=== PATIENT | female | born 1995 | race Caucasian/White ===

== ENCOUNTER 2020-03-04 11:46 | Emergency (ER) | payer OTHER, SELFPAY ==
[2020-03-04 12:06] VITALS: BP 135/76; PULSE 104; RESP 18; TEMP 37.9; O2SAT 100
--- NOTE | 2020-03-04 12:06 | ED.GENADULT ---
HPI - General Adult General Chief complaint: Anxiety Stated complaint: heart rate Time Seen by Provider: 03/04/20 12:24 Source: patient Mode of arrival: ambulatory Limitations: no limitations History of Present Illness HPI narrative: 24-year-old female patient presents to the [facility] with complaints of a high resting heart rate. Patient states that she was on a telehealth visit with her psychiatrist today. Patient states that she has been using her Fitbit as the source of her fast heart rate. Patient states that it ranges anywhere from the 110s up to the 120s. Patient states that while she was on the phone with her psychiatrist this morning her heart rate was 113 according to her Fitbit. Patient denies any chest pain, shortness of breath, abdominal pain, lightheadedness or dizziness. Patient denies being sick recently. Patient states that her medications through her psychiatrist were increased today due to her low mood. Patient states she is supposed to pick those up and started today. Patient denies any SI or HI at this time. Related Data Home Medications Medication Instructions Recorded Confirmed amitriptyline 50 mg PO HS 03/04/20 03/04/20 lamotrigine 150 mg PO DAILY 03/04/20 03/04/20 venlafaxine 75 mg PO DAILY 03/04/20 03/04/20 venlafaxine 150 mg PO DAILY 03/04/20 03/04/20 Allergies Allergy/AdvReac Type Severity Reaction Status Date / Time codeine AdvReac Unknown Verified 03/04/20 12:16 Review of Systems Review of Systems: Narrative: CONSTITUTIONAL: Denies fever, chills, or sweats. EYES: Denies visual changes, redness, or discharge. ENT: Denies rhinorrhea, congestion, sore throat, or otalgia. CARDIOVASCULAR: Denies chest pain, palpitations, or edema. Positive increased heart rate RESPIRATORY: Denies cough or dyspnea. GASTROINTESTINAL: Denies abdominal pain, nausea, vomiting, or diarrhea. GENITOURINARY: Denies dysuria or hematuria. SKIN: Denies rash or itching. MUSCULOSKELETAL: Denies back pain, joint pain, or myalgia. NEUROLOGIC: Denies headache, numbness, or weakness. PSYCHIATRIC: Denies anxiety or depression. [facility] Past Medical History Medical History (Updated 03/04/20 @ 12:39 by TUNDE Lima) Acute anxiety Depression Mood disorder Tachycardia Social History Social History Gender identity (if verbalized by the patient): Female Comments At the time of my signature I agree with nursing past medical history, surgical, social, and family history. There is no relevant family history pertinent to the presenting complaint. Exam Narrative: Exam Narrative: GENERAL: Well-appearing, well-nourished, and in no acute distress. HEAD: Normocephalic, atraumatic. EYES: PERRLA and EOMI. ENT: Nares clear, no rhinorrhea or epistaxis. Mucous membranes moist. NECK: Supple. No lymphadenopathy CHEST: Clear to auscultation. No respiratory distress. HEART: Regular rate and rhythm. No murmur heard. Normal peripheral pulses. ABDOMEN: Soft, nontender, nondistended, normal active bowel sounds. EXTREMITIES: Normal range of motion. No edema. SKIN: Warm, dry, no rash. NEURO: No focal deficits. Alert and oriented x3. Course Vital Signs Vital signs: Vital Signs Temperature 37.9 C H 03/04/20 12:06 Pulse Rate 104 H 03/04/20 12:06 Respiratory Rate 18 03/04/20 12:06 Blood Pressure 135/76 03/04/20 12:06 Pulse Oximetry 100 03/04/20 12:06 Temperature 37.9 C H 03/04/20 12:06 Pulse Rate 104 H 03/04/20 12:06 Respiratory Rate 18 03/04/20 12:06 Blood Pressure 135/76 03/04/20 12:06 Pulse Oximetry 100 03/04/20 12:06 Vital signs reviewed Medical Decision Making Differential Diagnosis Differential Diagnosis: Differential diagnosis: Tachycardia, anxiety attack, viral illness Discussed with patient that many times issues with anxiety can cause an increase in heart rate however her heart rate when she came in today was 104 which is aurea
== END 2020-03-04 12:38 | disposition home or self-care (01) ==
PROVIDERS: Emergency Provider Nurse Practitioner Family
DX: F41.9 Anxiety disorder, unspecified (principal); R00.0 Tachycardia, unspecified; F32.9 Major depressive disorder, single episode, unspecified
CPT/HCPCS: 99211; G0463

== ENCOUNTER 2020-03-27 11:08 | Emergency (ER) | payer OTHER, SELFPAY ==
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
[2020-03-27 11:19] VITALS: BP 120/90; PULSE 102; RESP 18; TEMP 36.8; O2SAT 100
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
== END 2020-03-27 13:12 | disposition home or self-care (01) ==
PROVIDERS: Emergency Provider General Practice
DX: S09.90XA Unspecified injury of head, initial encounter (principal); S16.1XXA Strain of muscle, fascia and tendon at neck level, initial encounter; Y04.2XXA Assault by strike against or bumped into by another person, initial encounter
CPT/HCPCS: 70450; 70486; 72125; 99284

== ENCOUNTER 2020-07-26 12:42 | Emergency (ER) | payer OTHER, SELFPAY ==
[2020-07-26 13:14] VITALS: BP 119/75; PULSE 79; RESP 18; TEMP 37.3; O2SAT 99
[2020-07-26 13:32] LABS: Basophils Absolute Auto 0.1 K/mm3 (0.0-0.1); Basophils Percent Auto 0.6 % (0.2-1.2); Eosinophils Absolute Auto 0.1 K/mm3 (0-0.3); Eosinophils Percent Auto 0.8 % (0-4.4); Hematocrit 38.7 % (37.0-47.0); Hemoglobin 13.3 g/dL (12.0-15.0); Immature Granulocyte Absolute 0.07 K/mm3 (0.00-0.031); Immature Granulocyte Percent A 0.8 % (0-0.5); Lymphocytes Absolute Auto 2.13 K/mm3 (0.9-3.2); Lymphocytes Percent Auto 25.8 % (18.3-44.2); Mean Corpuscular HGB Conc 34.4 g/dl (32-36); Mean Corpuscular Hemoglobin 31.4 pg (26-34); Mean Corpuscular Volume 91.3 fl (80-100); Mean Platelet Volume 9.5 fl (7.4-10.4); Monocytes Absolute Auto 0.4 K/mm3 (0.1-0.6); Monocytes Percent Auto 4.7 % (2.6-8.5); Neutrophils Absolute Auto 5.6 K/mm3 (1.3-6.7); Neutrophils Percent Auto 67.3 % (45.5-73.1); Platelet Count Result 386 k/mm3 (150-375); Red Blood Count 4.24 M/mm3 (4.2-5.4); Red Cell Distribution Width 11.8 % (11.5-14.5); White Blood Count 8.3 K/mm3 (4.5-10.0)
[2020-07-26 13:45] LABS: Alanine Aminotransferase 13 U/L (4-35); Albumin Level 4.6 g/dL (3.5-5.1); Alkaline Phosphatase 91 U/L (38-126); Anion Gap 6 mmol/L (8-16); Aspartate Amino Transferase 21 U/L (14-36); Blood Urea Nitrogen 7 mg/dL (7-17); Calcium 9.5 mg/dL (8.4-10.2); Carbon Dioxide 27 mmol/L (22-30); Chloride 106 mmol/L (98-107); Estimated CRCL calculation 94 ml/min; Estimated Glomerular Filt Rate > 60; Glucose 92 mg/dL (65-105); Lipase 37 U/L (23-300); Sodium 139 mmol/L (137-145)
[2020-07-26 14:00] LABS: Add Urine Microscopic? YES; Amorphous Sediment Urine Few; Appearance Urine Turbid (Clear); Bacteria Urine Trace /hpf; Bilirubin Urine Negative (Negative); Blood Urine Negative (Negative); Color Urine Yellow (Yellow); Glucose Urine UA Negative (Negative); Ketones Urine Negative (Negative); Leukocyte Esterase Ur 3+ LEU/UL (Negative); Mucus Urine Moderate /lpf; Nitrate Urine Negative (Negative); Protein Urine 2+ mg/dL (Negative); Specific Grav Ur 1.018 (1.001-1.035); Squamous Epithelial Cell Urine Many /hpf (Few); Urobilinogen Urine Negative mg/dL (<2.0); WBC Urine >75 /hpf
[2020-07-26 14:07] VITALS: BP 123/68; PULSE 78; RESP 18; TEMP 36.8; O2SAT 99
[2020-07-26] MEDS: ONDANSETRON INJ 4 MG/2 ML VIAL IV PUSH (14:29)
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
[2020-07-26 16:17] VITALS: BP 122/68; PULSE 72; RESP 18; O2SAT 98
== END 2020-07-26 16:18 | disposition home or self-care (01) ==
PROVIDERS: Physician Assistant; Emergency Provider Emergency Medicine
DX: R11.2 Nausea with vomiting, unspecified (principal); F41.9 Anxiety disorder, unspecified; F32.9 Major depressive disorder, single episode, unspecified
CPT/HCPCS: 36415; 80053; 81001; 81025; 83690; 85025; 87077; 87086; 87088; 87186; 96374; 99284; J2405

== ENCOUNTER 2022-08-06 08:46 | Emergency (ER) | payer OTHER, SELFPAY ==
--- NOTE | 2022-08-06 08:50 | ED.URI ---
HPI - URI/Sore Throat General Chief Complaint: Upper Respiratory Infection Stated Complaint: Cough/SOB/Right Eye Irritation Time Seen by Provider: 08/06/22 09:17 Source: patient and RN notes reviewed Mode of arrival: ambulatory Limitations: no limitations History of Present Illness HPI Narrative: 27-year-old female presents with concern for 5 day history of sinus congestion, drainage, cough, sore throat. Reports she woke up this morning with her right eye matted shut. Reports right eye redness, drainage. She denies taking any vlte-cea-wosbegl medications for her symptoms MD elicited complaint: cough, sore throat and nasal congestion Related Data Allergies Allergy/AdvReac Type Severity Reaction Status Date / Time codeine AdvReac Unknown Verified 08/06/22 09:04 Review of Systems Review of Systems: CONSTITUTIONAL: Denies malaise, chills, sweats, or fever. EYES: Denies visual changes. Reports right eye irritation, redness, yellow discharge. ENT: Reports rhinorrhea, congestion, and sore throat. CARDIOVASCULAR: Denies chest pain, palpitations, or edema. RESPIRATORY: Reports cough. Denies dyspnea. GASTROINTESTINAL: Denies abdominal pain, nausea, vomiting, diarrhea SKIN: Denies rash or itching. MUSCULOSKELETAL: Denies myalgia. NEUROLOGIC: Denies headache. All systems reviewed & are unremarkable except as noted in HPI and below PMFSH Past Medical History Medical History (Updated 08/06/22 @ 09:31 by Kati Pollard NP) Acute anxiety Depression Mood disorder Tachycardia Surgical History Surgical History (Updated 07/26/20 @ 14:48 by Michael Eastman MD) No pertinent past surgical history Social History Social History (Updated 07/26/20 @ 14:49 by Michael Eastman MD) Substance use type: marijuana Gender identity (if verbalized by the patient): Female Comments At time of signature, agree with nursing past medical, surgical, social and family history. There is no relevant family history pertinent to the presenting complaint Exam Narrative: GENERAL: Well-appearing, well-nourished, and in no acute distress. HEAD: Normocephalic EYES: PERRLA. Right sclera and conjunctivae injected with yellow drainage ENT: Nares clear, turbinates edematous and erythematous, yellow discharge. Mucous membranes moist. TM pearly pineda with dull light reflex bilaterally; no tragal tenderness. Oropharynx mildly erythematous without lesions. Tonsils not enlarged and without exudate, no drooling, no hoarseness, no trismus, uvula midline. NECK: Supple. No lymphadenopathy CHEST: Clear to auscultation, breath sounds equal. No wheezing, rhonchi, rales, or stridor. No respiratory distress, speaks in full sentences. HEART: Regular rate and rhythm. No murmur heard. SKIN: Warm, dry, no rash. NEURO: Alert and oriented x3. PSYCH: Normal mood and affect Course Course Emergency Course: Patient is aware of diagnosis, understands and agrees to treatment plan. Anticipatory guidance given. Patient agrees to follow-up as directed and is aware of reasons to seek care at the emergency department. Portions of this record may have been created with voice recognition software Level of Care: Express Care Visit Vital Signs Vital signs: Reviewed. MDM - URI/Sore Throat MDM Narrative Medical decision making narrative: Differential diagnosis considered: Gallego virus, strep pharyngitis, allergic rhinitis, upper respiratory tract infection, sinusitis, rhinosinusitis, nasopharyngitis. viral pharyngitis, otitis media, otitis externa, pneumonia, bronchitis, viral cough syndrome, viral syndrome, and influenza. Exam findings show no acute concerns or changes; patient is non-toxic appearing and is in no distress. Patient is appropriate for outpatient treatment and follow-up. Lab Data Attestation: I reviewed the patient's lab results. Critical Care Time Critical Care Time Critical Care Time: No Discharge Plan Discharge Clinical Impression: Acute viral sinus
[2022-08-06 09:06] VITALS: BP 130/87; PULSE 95; RESP 20; TEMP 36.9; O2SAT 100
== END 2022-08-06 09:41 | disposition home or self-care (01) ==
PROVIDERS: Emergency Provider Nurse Practitioner; PCP Physician Assistant
DX: J01.90 Acute sinusitis, unspecified (principal); H10.9 Unspecified conjunctivitis; Z20.822 Contact with and (suspected) exposure to COVID-19
CPT/HCPCS: 87081; 87426; 87804; 87880; 99213; C9803; G0463

== ENCOUNTER 2022-10-12 15:36 | Emergency (ER) | payer OTHER, SELFPAY ==
--- NOTE | 2022-10-12 15:39 | ED.FEMALEGU ---
HPI - Female Genitourinary General Chief complaint: Urogenital-Female Stated complaint: Sti testing Time Seen by Provider: 10/12/22 15:37 Source: patient Mode of arrival: ambulatory Limitations: no limitations History of Present Illness HPI Narrative: Airam is a 27-year-old female patient presenting to the clinic today with complaints vaginal pain and burning with urination. She reports last intercourse was over a week ago. States she is having burning with urination and excoriation to her vulva. Also reports some lesions to her vulva. States that she has recently shaved and the spots came up after shaving. She denies any abnormal vaginal discharge or odor. Related Data Home Medications Medication Instructions Recorded Confirmed amitriptyline 50 mg tablet 50 mg PO HS 10/12/22 10/12/22 aripiprazole 20 mg tablet 20 mg PO DAILY 10/12/22 10/12/22 lamotrigine 100 mg tablet,extended 100 mg PO DAILY 10/12/22 10/12/22 release 24 hr levonorgestrel 21 mcg/24 hours (8 1 device intrauterine ONCE 10/12/22 10/12/22 yrs) 52 mg intrauterine device (Mirena) Allergies Allergy/AdvReac Type Severity Reaction Status Date / Time codeine Allergy Intermediate Hives Verified 10/12/22 16:02 Review of Systems Review of Systems: Pertinent positives per HPI. Patient denies any fever, chills, rash, headache, visual changes, dizziness, cough, runny nose, sore throat, shortness of breath, chest pain, palpitations, nausea, vomiting, diarrhea, constipation, abdominal pain, or any urinary issues. [facility] Past Medical History Medical History Acute anxiety Depression Mood disorder Tachycardia Surgical History Surgical History No pertinent past surgical history Social History Social History Substance use type: marijuana Gender identity (if verbalized by the patient): Female Comments At the time of my signature, I reviewed and agree with the nursing past medical, surgical, social, and family history. There is no relevant family history pertinent to the patient complaint. Exam Narrative: General: Well-developed, well nourished, in no apparent distress Head: Normocephalic, atraumatic. Cardio: Regular rate and rhythm, s1 and s2 normal, no murmur appreciated. Resp: Clear to auscultation bilaterally, no rhonchi, rales, wheezing or rubs. Abdomen: Soft, pliable, bowel sounds present in all quadrants, non-tender to palpation, no CVAT tenderness. : External Pelvic exam performed with ( Tarun RN-TRIPLE DRUM OPERATOR student) at bedside. Verbal consent obtained from patient. External female genitalia with vesicular painful lesions to the vulva/vagina, no masses, excoriation of vulva Urinary meatus: patent without discharge, Vagina: Vesicular pain lesions to bilateral labia, vulva, and mons pubis, no masses or discharge, Course Course Emergency Course: Portions of this record may have been created with voice recognition software. Level of Care: Express Care Visit Vital Signs Vital signs: Vital signs reviewed MDM - Female Genitourinary MDM Narrative Medical decision making narrative: At the time of visit patient is resting comfortably on exam table. Urinalysis shows 1+ leukocyte and protein. We will send for culture. We will send her urine off for chlamydia, gonorrhea, and Trichomonas testing. Viral swab was used to test for genital herpes. I will place the patient on Macrobid to cover for a urinary tract infection. Will also send in prescription for acyclovir for probable genital herpes. Supportive measures were discussed with the patient she voiced understanding discharge instructions agrees to treatment plan Differential Diagnosis Differential diagnosis: Likely urinary tract infection, bacterial vaginosis, trichomoniasis, vaginitis and cystitis
[2022-10-12 15:44] VITALS: BP 118/77; PULSE 109; RESP 16; TEMP 37.4; O2SAT 100
== END 2022-10-12 16:28 | disposition home or self-care (01) ==
PROVIDERS: Emergency Provider Nurse Practitioner Family; PCP Physician Assistant
DX: N76.5 Ulceration of vagina (principal); N76.6 Ulceration of vulva; N30.00 Acute cystitis without hematuria; F32.A Depression, unspecified; F12.90 Cannabis use, unspecified, uncomplicated
CPT/HCPCS: 81003; 87070; 87077; 87086; 87186; 87491; 87591; 87661; 99214; G0463

== ENCOUNTER 2022-12-02 13:23 | Emergency (ER) | payer OTHER, SELFPAY ==
[2022-12-02] VITALS (16 sets, daily range): BP systolic 113–141; BP diastolic 68–95; PULSE 77–89; RESP 18; O2SAT 98–100
[2022-12-02 14:01] LABS: Basophils Percent Auto 0.2 % (0.2-1.2); Hematocrit 45.7 % (37.0-47.0); Hemoglobin 15.5 g/dL (12.0-15.0); Immature Granulocyte Absolute 0.08 K/mm3 (0.00-0.031); Immature Granulocyte Percent A 0.5 % (0-0.5); Lymphocytes Absolute Auto 1.39 K/mm3 (0.9-3.2); Lymphocytes Percent Auto 9.4 % (18.3-44.2); Mean Corpuscular HGB Conc 33.9 g/dl (32-36); Mean Corpuscular Hemoglobin 31.4 pg (26-34); Mean Corpuscular Volume 92.7 fl (80-100); Mean Platelet Volume 9.1 fl (7.4-10.4); Monocytes Absolute Auto 0.8 K/mm3 (0.1-0.6); Monocytes Percent Auto 5.1 % (2.6-8.5); Neutrophils Absolute Auto 12.6 K/mm3 (1.3-6.7); Neutrophils Percent Auto 84.8 % (45.5-73.1); Platelet Count Result 393 k/mm3 (150-375); Red Blood Count 4.93 M/mm3 (4.2-5.4); Red Cell Distribution Width 11.8 % (11.5-14.5); White Blood Count 14.8 K/mm3 (4.5-10.0)
[2022-12-02 14:16] LABS: Appearance Urine Cloudy (Clear); Bacteria Urine 2+ /hpf; Bilirubin Urine 1+ (Negative); Blood Urine Negative (Negative); Color Urine Dark Yellow (Yellow); Glucose Urine UA Negative (Negative); Ketones Urine Trace mg/dL (Negative); Leukocyte Esterase Ur Trace LEU/UL (Negative); Need Manual Microscopic Reviewed; Nitrate Urine Negative (Negative); Non Pathogenic Casts 0-2; Protein Urine 2+ mg/dL (Negative); Specific Grav Ur 1.034 (1.001-1.035); Squamous Epithelial Cell Urine Many /hpf (Few)
[2022-12-02 14:17] LABS: Add Urine Microscopic? YES
--- NOTE | 2022-12-02 14:19 | ED.NAVMDI ---
HPI - Nausea/Vomiting/Diarrhea General Chief complaint: Nausea/Vomiting/Diarrhea Stated complaint: N/V Time Seen by Provider: 12/02/22 14:06 History of Present Illness HPI Narrative: Patient is a 27-year-old female with history of cyclic vomiting syndrome here with nausea and vomiting. She states that this feels similar to her prior episodes of cyclic vomiting syndrome. Her symptoms began around 530 yesterday morning and she began having multiple episodes of emesis. Nonbloody, usually containing the fluids that she just drank. She denies any associated abdominal pain. Denies any diarrhea. Denies fever chills. She did have 1 prior endoscopy in 2012 which was grossly normal that she remembers. Is currently waiting for a GI referral from her primary care doctor. She notes she has been on Zofran as well as suppositories in the past for her nausea, none of these seem to have helped and she usually does have to let it ride out. No urinary symptoms. No concern for STI. She has irregular periods due to Mirena IUD, does not believe she is . Related Data Home Medications Medication Instructions Recorded Confirmed amitriptyline 50 mg tablet 50 mg PO HS 10/12/22 10/12/22 aripiprazole 20 mg tablet 20 mg PO DAILY 10/12/22 10/12/22 lamotrigine 100 mg tablet,extended 100 mg PO DAILY 10/12/22 10/12/22 release 24 hr levonorgestrel 21 mcg/24 hours (8 1 device intrauterine ONCE 10/12/22 10/12/22 yrs) 52 mg intrauterine device (Mirena) Allergies Allergy/AdvReac Type Severity Reaction Status Date / Time codeine Allergy Intermediate Hives Verified 12/02/22 13:43 Review of Systems Review of Systems: All systems reviewed & are unremarkable except as noted in HPI and below PMFSH Past Medical History Medical History Acute anxiety Depression Mood disorder Tachycardia Surgical History Surgical History No pertinent past surgical history Social History Social History Substance use type: marijuana Gender identity (if verbalized by the patient): Female Exam Narrative: GENERAL: Well-appearing, well-nourished, and in no acute distress. HEAD: Normocephalic, atraumatic. EYES: PERRLA and EOMI. ENT: Nares clear. Mucous membranes moist. NECK: Supple. CHEST: Clear to auscultation. No respiratory distress. HEART: Regular rate and rhythm. Normal peripheral pulses. ABDOMEN: Soft, nontender, nondistended. EXTREMITIES: Normal range of motion. No edema. SKIN: Warm, dry, no rash. NEURO: No focal deficits. Alert and oriented x3. PSYCH: Normal mood and affect. Course Course Emergency Course: Chart review performed. Nursing note states history of cyclic vomiting, began at 530 AM yesterday. One prior ED visit for the same in our system in 2020. Physician note reviewed from that visit. She was treated and discharged with zofran. Patient presented to the ED with complaint of abdominal pain. Vitals reviewed and appear stable. Physical exam revealed . Based on the patient';s history and physical exam, my differential includes but is not limited to gastritis, gastroenteritis, pancreatitis, cyclic vomiting syndrome. Less likely cholecystitis or appendicitis given benign abdominal exam. Initial workup includes: abdominal lab work, antiemetics, IVF. Lab work and imaging reviewed: Mild leukocytosis at 14.8, could be somewhat reactive due to her vomiting. She has a slightly elevated bilirubin however AST/ALT within normal limits. Dirty urine specimen, do not believe she has a UTI. Will reevaluate and perform additional abdominal exam. On reevaluation, the patient states that they are feeling much better. Repeat examination did not show any significant guarding or rebound. Discussed workup with patient. Will do PO challenge. Patient vomi
[2022-12-02 14:22] LABS: Albumin Level 5.3 g/dL (3.5-5.1); Alkaline Phosphatase 68 U/L (38-126); Anion Gap 17 mmol/L (8-16); Aspartate Amino Transferase 31 U/L (14-36); Bilirubin,Total 2.8 mg/dL (0.2-1.3); Blood Urea Nitrogen 15 mg/dL (7-17); Carbon Dioxide 22 mmol/L (22-30); Chloride 99 mmol/L (98-107); Estimated CRCL calculation 89 ml/min; Estimated Glomerular Filt Rate > 60; Glucose 107 mg/dL (65-110); Lipase 37 U/L (23-300); Potassium 3.6 mmol/L (3.4-5.0); Sodium 138 mmol/L (137-145)
[2022-12-02 14:32] LABS: Alanine Aminotransferase 30 U/L (6-35)
[2022-12-02] MEDS: SODIUM CHLORIDE 0.9% IV 1,000 ML 999 ML IV CONT (14:55)
[2022-12-02] MEDS: ONDANSETRON INJ 4 MG/2 ML VIAL IV PUSH (14:55)
--- NOTE | 2022-12-02 16:59 | PC.NURSE ---
After attempting a PO challenge with apple juice, RN reassesses pt and she has just had an episode of emesis. RN reports to ERP.
--- NOTE | 2022-12-02 17:06 | PC.NURSE ---
RN obtains IV Haloperidol order and when pulling medication, the medication bottle states IM injection only. RN calls pharmacist for further advice who reports that haloperidol should be only pushed IM. RN reports to ERP who states medication can be given IM.
[2022-12-02] MEDS: diphenhydrAMINE HCl INJ 50 MG/ML VIAL 25 MG IV PUSH (17:09)
[2022-12-02] MEDS: HALOPERIDOL LACTATE 5 MG/ML VIAL IV PUSH (17:11)
== END 2022-12-02 18:34 | disposition home or self-care (01) ==
PROVIDERS: Preventive Medicine Aerospace Medicine; Emergency Provider Student in an Organized Health Care Education/Training Program; PCP Physician Assistant
DX: R11.2 Nausea with vomiting, unspecified (principal); F41.9 Anxiety disorder, unspecified; F32.A Depression, unspecified; F39 Unspecified mood [affective] disorder; Z97.5 Presence of (intrauterine) contraceptive device
CPT/HCPCS: 36415; 80053; 81001; 81025; 83690; 85025; 87086; 87088; 87147; 96361; 96374; 96375; 99284; J1200; J1630; J2405; J7030

== ENCOUNTER 2023-02-17 21:20 | Emergency (ER) | payer OTHER, SELFPAY ==
[2023-02-17] VITALS (10 sets, daily range): BP systolic 92–116; BP diastolic 56–79; PULSE 70–92; RESP 15–25; TEMP 37.1; O2SAT 97–100
--- NOTE | ~2023-02-17 | CT_ITS ---
EXAMINATION: CT cervical spine wo con DATE: 02/17/2023 23:11 INDICATION: Fell off a barstool. Neck pain. Cyclic vomiting. TECHNIQUE: Computed tomography (CT) of the cervical spine was performed without intravenous contrast. Automated exposure control and iterative reconstruction technique were employed. Exam dose: 138.51 mGy-cm total exam DLP. COMPARISON: 03/27/2020 CT cervical spine FINDINGS: There is fracture of the left superior articular facet of C6.. The left C5-6 facet joint is perched, with approximately 2 mm anterolisthesis at C5-6. There is straightening the cervical spine which may be due to muscle spasm. No other fracture or disl ocation is detected. C1 and C2 are normally aligned and the odontoid process is intact. Cervical interspaces are preserved. No prevertebral soft tissue swelling. IMPRESSION: Fracture of left C6 superior articular facet with perched left C5-6 facet joint and 2 mm left C5-6 anterolisthesis Reviewed, dictated and finalized at [facility]. Reviewed, dictated and finalized at [facility]. IMPRESSION: Fracture of left C6 superior articular facet with perched left C5- 6 facet joint and 2 mm left C5-6 anterolisthesis
--- NOTE | ~2023-02-17 | CT_ITS ---
EXAMINATION: CT brain wo con DATE: 02/17/2023 23:11 INDICATION: Fell off a barstool. Cyclic vomiting. Syncope. TECHNIQUE: Computed tomography (CT) of the head was performed without intravenous contrast. The mA wa s adjusted according to patient size. Iterative reconstruction technique was employed. Exam dose: 60 5.33 mGy-cm total exam DLP. COMPARISON: 03/27/2020 CT brain FINDINGS: No intracranial mass lesion or hemorrhage or cerebrovascular accident. No midline shift or mass effect. Normal ventricular size. Normal pineda-white matter differentiation. No subdural or epidural hematoma. The mastoid air cells and paranasal sinuses are normally developed and aerated. No fracture or bone destruction of the cranial vault. IMPRESSION: Negative Reviewed, dictated and finalized at [facility]. Reviewed, dictated and finalized at [facility]. IMPRESSION: Negative
--- NOTE | ~2023-02-17 | XR_ITS ---
EXAM: XR shoulder LT min 2V DATE: 02/17/2023 22:43 HISTORY: trauma . COMPARISON: None available. FINDINGS: Normal mineralization. No fracture or dislocation. No lytic or blastic lesion. Joint space s are maintained. No erosion or periosteal change. Soft tissues within normal limits. IMPRESSION: No acute osseous finding in the left shoulder. Reviewed, dictated and finalized at [facility].
--- NOTE | 2023-02-17 21:22 | ECG_ITS ---
Measurements Intervals [place] Rate: 72 P: 55 MT: 135 QRS: 94 QRSD: 105 T: 54 QT: 382 QTc: 420 Interpretive Statements SINUS RHYTHM NORMAL ECG NO PREVIOUS ECG AVAILABLE FOR COMPARISON Electronically Signed On 02-18-2023 13:40:26 CDT by Grupo Santizo M.D.
[2023-02-17 22:01] LABS: Basophils Absolute Auto 0.1 K/mm3 (0.0-0.1); Basophils Percent Auto 0.4 % (0.2-1.2); Eosinophils Absolute Auto 0.1 K/mm3 (0-0.3); Eosinophils Percent Auto 0.6 % (0-4.4); Hemoglobin 15.4 g/dL (12.0-15.0); Immature Granulocyte Absolute 0.09 K/mm3 (0.00-0.031); Immature Granulocyte Percent A 0.6 % (0-0.5); Lymphocytes Absolute Auto 3.83 K/mm3 (0.9-3.2); Lymphocytes Percent Auto 27.6 % (18.3-44.2); Mean Corpuscular HGB Conc 33.5 g/dl (32-36); Mean Corpuscular Hemoglobin 31.2 pg (26-34); Mean Corpuscular Volume 93.3 fl (80-100); Mean Platelet Volume 9.3 fl (7.4-10.4); Monocytes Absolute Auto 0.6 K/mm3 (0.1-0.6); Monocytes Percent Auto 4.4 % (2.6-8.5); Neutrophils Absolute Auto 9.2 K/mm3 (1.3-6.7); Neutrophils Percent Auto 66.4 % (45.5-73.1); Platelet Count Result 456 k/mm3 (150-375); Red Blood Count 4.93 M/mm3 (4.2-5.4); Red Cell Distribution Width 11.9 % (11.5-14.5); White Blood Count 13.9 K/mm3 (4.5-10.0)
--- NOTE | 2023-02-17 22:03 | ED.SYNCOPE ---
HPI - Syncope General Chief Complaint: Syncope Stated Complaint: Syncope, head injury Time Seen by Provider: 02/17/23 21:50 Source: patient Mode of arrival: EMS Limitations: no limitations History of Present Illness HPI narrative: 27-year-old female history of cyclic vomiting syndrome and recurrent syncope issues presenting to emergency department for syncope. Patient says that her cyclic vomiting syndrome it has been causing issues are her over the last few days she has been vomiting most of the day. It is pretty standard for her when she is having issues. It got better. Later in the day and she went to a [email or web address]. Had 1 drink of alcohol was sitting on a stool when she started getting very lightheaded, dizzy, nauseated and then had a syncopal episode and fell backwards. Remembers waking up lying on the ground. Since then she is having pain in the left side of her neck primarily as well as her left shoulder. She occasionally gets some paresthesias in the fingertips of her thumb and index finger on the left. Otherwise no complaints of any trauma. She is not nauseated at this point. No vision changes. Reports that she typically has syncopal episodes when she stands up and walks around what she is having cyclic vomiting issues and this is not new for her. She is taoism here to make sure that she does not have any injuries. All other symptoms and complaints are negative as per ROS. Related Data Home Medications Medication Instructions Recorded Confirmed amitriptyline 50 mg tablet 50 mg PO HS 10/12/22 10/12/22 aripiprazole 20 mg tablet 20 mg PO DAILY 10/12/22 10/12/22 lamotrigine 100 mg tablet,extended 100 mg PO DAILY 10/12/22 10/12/22 release 24 hr levonorgestrel 21 mcg/24 hours (8 1 device intrauterine ONCE 10/12/22 10/12/22 yrs) 52 mg intrauterine device (Mirena) Allergies Allergy/AdvReac Type Severity Reaction Status Date / Time codeine Allergy Intermediate Hives Verified 02/17/23 21:46 Review of Systems Review of Systems: All systems reviewed & are unremarkable except as noted in HPI and below PMFSH Past Medical History Medical History Acute anxiety Depression Mood disorder Tachycardia Surgical History Surgical History No pertinent past surgical history Social History Social History Substance use type: marijuana Gender identity (if verbalized by the patient): Female Exam Narrative: Constitutional: Generally well appearing, no acute distress Head: Atraumatic, no deformities. Eyes: Pupils equal, round, and reactive to light. Neck: cervical collar in place. No tracheal deviation. No JVD. Mildly tender in the lower C-spine. No step-off. ENMT: Mucous membranes moist Cardiovascular: S1, S2 auscultated. No murmurs, rubs, or gallops. No S3/S4. Normal Distal pulses. No peripheral edema. Respiratory: Lung sounds equal. No wheezes, rales, or rhonchi. Gastrointestinal: Abdomen was soft and non-tender. Non-distended. No rebound or guarding. Genitourinary: Deferred Musculoskeletal: Normal muscle tone and bulk. No obvious deformities . Mildly tender in the left shoulder With movement. No deformity Skin: No rashes. Neurological: Strength 5/5 in extremities. Cranial nerves I-XII grossly intact. Distal sensation intact. Mental Status: Awake, alert and oriented x3. Follows commands Course Vital Signs Vital signs: Vital Signs Temperature 37.1 C 02/17/23 21:30 Pulse Rate 82 02/17/23 21:30 Respiratory Rate 20 02/17/23 21:30 Blood Pressure 92/56 L 02/17/23 21:30 Pulse Oximetry 99 02/17/23 21:30 Oxygen Delivery Room Air 02/17/23 21:30 Temperature 37.1 C 02/17/23 21:30 Pulse Rate 88 02/18/23 01:46 Respiratory Rate 21 H 02/18/23 01:46 Blood Pressure 128/79 02/18/23 01:46 Pulse Ox
[2023-02-17 22:15] LABS: Alanine Aminotransferase 18 U/L (6-35); Albumin Level 5.2 g/dL (3.5-5.1); Alkaline Phosphatase 74 U/L (38-126); Anion Gap 16 mmol/L (8-16); Aspartate Amino Transferase 28 U/L (14-36); Bilirubin,Total 2.2 mg/dL (0.2-1.3); Blood Urea Nitrogen 13 mg/dL (7-17); Calcium 9.9 mg/dL (8.4-10.2); Carbon Dioxide 24 mmol/L (22-30); Chloride 95 mmol/L (98-107); Estimated CRCL calculation 68 ml/min; Estimated Glomerular Filt Rate > 60; Glucose 169 mg/dL (65-110); Potassium 3.3 mmol/L (3.4-5.0); Sodium 135 mmol/L (137-145)
[2023-02-17] MEDS: SODIUM CHLORIDE 0.9% IV 1,000 ML 999 ML IV CONT ×2 (22:17)
[2023-02-17] MEDS: ACETAMINOPHEN 500 MG TABLET 1000 MG PO (22:54)
[2023-02-17] MEDS: KETOROLAC 15 MG/ML VIAL (*BKC) IV PUSH (23:53)
[2023-02-17] MEDS: oxyCODONE/ACETAMINOPHEN (*CRX) 5-325 MG TABLET 1 TABLET PO (23:59)
[2023-02-18] VITALS (15 sets, daily range): BP systolic 98–128; BP diastolic 64–86; PULSE 72–90; RESP 12–24; O2SAT 97–100
[2023-02-18 00:22] LABS: Pregnancy On Board Control Positive; Urine Pregnancy Test Negative
[2023-02-18] MEDS: MORPHINE SULFATE (*CRX) 4 MG/ML INJ IV PUSH (02:02)
--- NOTE | 2023-02-18 03:06 | PC.NURSE ---
Report received from SPENCER Travis. Assumed care of patient at this time.
== END 2023-02-18 04:25 | disposition short-term general hospital (02) ==
PROVIDERS: Emergency Medicine; Emergency Provider Emergency Medicine; PCP Physician Assistant
DX: S12.500A Unspecified displaced fracture of sixth cervical vertebra, initial encounter for closed fracture (principal); R55 Syncope and collapse; W07.XXXA Fall from chair, initial encounter
CPT/HCPCS: 36415; 70450; 72125; 73030; 80053; 81025; 85025; 93005; 96361; 96374; 99285; A9270; J1885; J2270; J7030

== ENCOUNTER 2023-06-19 08:32 | Emergency (ER) | payer OTHER, SELFPAY ==
--- NOTE | ~2023-06-19 | CT_ITS ---
EXAMINATION: CT abdomen pelvis w con INDICATION: Nausea and vomiting TECHNIQUE: Computed tomographic images of the abdomen and pelvis were obtained after the administrati on of 100 cc of Omnipaque 350 intravenous contrast. The dose-length product (DLP) was 225.14 mGy-cm. Automated exposure control and iterative reconstruction technique were employed. COMPARISON: 11/27/2016 FINDINGS: The lung bases are clear. The heart size is normal. The liver, spleen, pancreas, gallbladde r, and adrenal glands are normal. The kidneys are unremarkable. No pathologically enlarged abdominal or pelvic lymph nodes are identified. No free intraperitoneal gas or evidence of bowel obstruction. T he appendix is normal. An IUD is present in expected position. IMPRESSION: 1. No CT correlate for the patient's symptoms. Reviewed, dictated and finalized at [facility] [employer] [employer]ORIST
[2023-06-19 08:43] VITALS: BP 129/96; PULSE 113; RESP 18; TEMP 37.1; O2SAT 96
[2023-06-19 09:03] LABS: Basophils Percent Auto 0.2 % (0.2-1.2); Eosinophils Percent Auto 0.2 % (0-4.4); Hematocrit 46.2 % (37.0-47.0); Hemoglobin 15.7 g/dL (12.0-15.0); Immature Granulocyte Percent A 0.5 % (0-0.5); Lymphocytes Absolute Auto 1.51 K/mm3 (0.9-3.2); Lymphocytes Percent Auto 8.1 % (18.3-44.2); Mean Corpuscular Hemoglobin 30.3 pg (26-34); Mean Platelet Volume 9.6 fl (7.4-10.4); Monocytes Absolute Auto 1.2 K/mm3 (0.1-0.6); Monocytes Percent Auto 6.6 % (2.6-8.5); Neutrophils Absolute Auto 15.7 K/mm3 (1.3-6.7); Neutrophils Percent Auto 84.4 % (45.5-73.1); Platelet Count Result 520 k/mm3 (150-375); Red Blood Count 5.19 M/mm3 (4.2-5.4); Red Cell Distribution Width 12.4 % (11.5-14.5); White Blood Count 18.6 K/mm3 (4.5-10.0)
[2023-06-19 09:06] VITALS: BP 127/79; BP 132/91; PULSE 104; PULSE 91
[2023-06-19 09:07] VITALS: BP 129/89; PULSE 119
[2023-06-19 09:12] LABS: Alanine Aminotransferase 21 U/L (6-35); Albumin Level 5.4 g/dL (3.5-5.1); Alkaline Phosphatase 110 U/L (38-126); Anion Gap 13 mmol/L (8-16); Aspartate Amino Transferase 34 U/L (14-36); Bilirubin,Total 3.3 mg/dL (0.2-1.3); Blood Urea Nitrogen 18 mg/dL (7-17); Calcium 10.1 mg/dL (8.4-10.2); Carbon Dioxide 29 mmol/L (22-30); Chloride 93 mmol/L (98-107); Estimated Glomerular Filt Rate > 60; Glucose 122 mg/dL (65-110); Lipase 53 U/L (23-300); Potassium 3.4 mmol/L (3.4-5.0); Sodium 135 mmol/L (137-145)
[2023-06-19 09:14] LABS: Appearance Urine Cloudy (Clear); Bacteria Urine 1+ /hpf; Bilirubin Urine Negative (Negative); Blood Urine Negative (Negative); Color Urine Dark Yellow (Yellow); Glucose Urine UA Negative (Negative); Ketones Urine Trace mg/dL (Negative); Leukocyte Esterase Ur Trace LEU/UL (Negative); Need Manual Microscopic Reviewed; Nitrate Urine Negative (Negative); Protein Urine 3+ mg/dL (Negative); RBC Urine 0-2 /hpf (0-2); Squamous Epithelial Cell Urine Moderate /hpf (Few)
[2023-06-19 09:15] LABS: Add Urine Microscopic? YES; Specific Grav Ur 1.036 (1.001-1.035)
--- NOTE | 2023-06-19 10:04 | ED.NAVMDI ---
HPI - Nausea/Vomiting/Diarrhea General Chief complaint: Nausea/Vomiting/Diarrhea Stated complaint: Nausea Time Seen by Provider: 06/19/23 09:01 Source: patient Mode of arrival: ambulatory Limitations: no limitations History of Present Illness HPI Narrative: Patient is a 27-year-old female, with past medical history of cyclic vomiting syndrome, marijuana use, who presents the ED with report of nausea and vomiting. Patient reports she has been unable to keep down any food or drink since Sunday. Reports persistent vomiting. States this feels typical of her cyclic vomiting. She is scheduled to undergo EGD next week for this with GI at outside hospital. Feels very weak and dehydrated. Reports lower abdominal cramping. Reports normal bowel movements, but notes she has not been eating over the last couple of days. Denies diarrhea. Denies cough or cold symptoms. Denies fevers. Denies urinary complaints. Patient states she has not smoked marijuana since Sunday. Related Data Home Medications Medication Instructions Recorded Confirmed amitriptyline 50 mg tablet 50 mg PO HS 10/12/22 10/12/22 aripiprazole 20 mg tablet 20 mg PO DAILY 10/12/22 10/12/22 lamotrigine 100 mg tablet,extended 100 mg PO DAILY 10/12/22 10/12/22 release 24 hr levonorgestrel 21 mcg/24 hours (8 1 device intrauterine ONCE 10/12/22 10/12/22 yrs) 52 mg intrauterine device (Mirena) Allergies Allergy/AdvReac Type Severity Reaction Status Date / Time codeine Allergy Intermediate Hives Verified 06/19/23 08:32 Review of Systems Review of Systems: CONSTITUTIONAL: Denies fever, chills, or sweats. ENT: Denies rhinorrhea, congestion, sore throat. CARDIOVASCULAR: Denies chest pain. RESPIRATORY: Denies cough or dyspnea. GASTROINTESTINAL: See HPI. GENITOURINARY: Denies dysuria or hematuria. All systems reviewed & are unremarkable except as noted in HPI and below PMFSH Past Medical History Medical History Acute anxiety Depression Mood disorder Tachycardia Surgical History Surgical History No pertinent past surgical history Social History Social History Substance use type: marijuana Gender identity (if verbalized by the patient): Female Exam Narrative: GENERAL: Mildly ill appearing, well-nourished, non-toxic, in no acute distress. HEAD: Normocephalic, atraumatic. RESPIRATORY: Airway patent, respirations nonlabored. Clear to auscultation bilaterally, no rales, rhonchi, wheezing. CARDIOVASCULAR: Tachycardic with regular rhythm without murmurs, rubs, or gallops. ABDOMINAL: Soft, diffuse lower abdominal and left-sided tenderness to palpation, nondistended. Normoactive BS. MUSCULOSKELETAL: Moves all extremities. No gross deformities. SKIN: Warm, dry, normal color. NEURO: A&O X3. Speech clear. Cranial nerves II-XII grossly intact. Steady gait. No ataxic movements. PSYCHIATRIC: Appropriate mood and affect. Normal interaction. Course Vital Signs Vital signs: Vital Signs Temperature 98.7 F 06/19/23 08:43 Pulse Rate 113 H 06/19/23 08:43 Respiratory Rate 18 06/19/23 08:43 Blood Pressure 129/96 H 06/19/23 08:43 Pulse Oximetry 96 06/19/23 08:43 Oxygen Delivery Room Air 06/19/23 08:43 Temperature 98.7 F 06/19/23 08:43 Pulse Rate 75 06/19/23 11:23 Respiratory Rate 18 06/19/23 11:23 Blood Pressure 122/81 06/19/23 11:23 Pulse Oximetry 98 06/19/23 11:23 Oxygen Delivery Room Air 06/19/23 08:43 MDM - Nausea/Vomiting/Diarrhea MDM Narrative Medical decision making narrative: Patient presented to ED with several day history of nausea and vomiting, history of cyclic vomiting. Patient tachycardic upon arrival. In no acute distress. Fluids initiated. CBC with leukocytosis of 18.6. Likely hemoconcentrated. CMP with
[2023-06-19] MEDS: METOCLOPRAMIDE HCL INJ 10 MG/2 ML VIAL IV PUSH (10:10)
[2023-06-19] MEDS: FAMOTIDINE 20 MG/2 ML VIAL IV PUSH (10:11)
[2023-06-19] MEDS: diphenhydrAMINE HCl INJ 50 MG/ML VIAL 25 MG IV PUSH (10:11)
[2023-06-19] MEDS: SODIUM CHLORIDE 0.9% IV 1,000 ML 999 ML IV CONT ×2 (10:11)
[2023-06-19 10:48] LABS: Influenza A QL RT-PCR Negative (Negative); Influenza B QL RT-PCR Negative (Negative); RSV RNA, RT-PCR Negative (Negative); SARS-CoV-2 RNA PCR Negative (Negative)
[2023-06-19 11:23] VITALS: BP 122/81; PULSE 75; RESP 18; O2SAT 98
== END 2023-06-19 11:55 | disposition home or self-care (01) ==
PROVIDERS: Emergency Medicine; Emergency Provider Physician Assistant; PCP Physician Assistant
DX: R11.15 Cyclical vomiting syndrome unrelated to migraine (principal); E86.0 Dehydration; Z20.822 Contact with and (suspected) exposure to COVID-19; F41.9 Anxiety disorder, unspecified; F32.A Depression, unspecified; F39 Unspecified mood [affective] disorder; Z97.5 Presence of (intrauterine) contraceptive device
CPT/HCPCS: 36415; 74177; 80053; 81001; 81025; 83690; 85025; 87086; 87637; 96361; 96374; 96375; 99284; J1200; J2765; J7030; Q9967

== ENCOUNTER 2023-07-24 07:45 | Emergency (ER) | payer OTHER, MEDICAID, SELFPAY ==
[2023-07-24 07:55] VITALS: BP 111/84; PULSE 112; RESP 16; O2SAT 95
--- NOTE | 2023-07-24 08:11 | ED.NAVMDI ---
HPI - Nausea/Vomiting/Diarrhea General Chief complaint: Nausea/Vomiting/Diarrhea Stated complaint: puking since Time Seen by Provider: 07/24/23 08:02 Source: patient Mode of arrival: ambulatory Limitations: no limitations History of Present Illness HPI Narrative: 28 years old white female drove herself to the emergency room because of nausea and vomiting unable to keep anything down for the last 6 days. Patient reports upper respiratory infection symptoms started 1 week ago, runny nose, postnasal injuries congestion, chills. History of bipolar, uses marijuana daily. She denies any fever.. Reports intermittent diffuse abdominal discomfort, not right now patient is telling me that she noticed black tarry stool this morning Related Data Home Medications Medication Instructions Recorded Confirmed amitriptyline 50 mg tablet 50 mg PO HS 10/12/22 10/12/22 aripiprazole 20 mg tablet 20 mg PO DAILY 10/12/22 10/12/22 lamotrigine 100 mg tablet,extended 100 mg PO DAILY 10/12/22 10/12/22 release 24 hr levonorgestrel 21 mcg/24 hours (8 1 device intrauterine ONCE 10/12/22 10/12/22 yrs) 52 mg intrauterine device (Mirena) Allergies Allergy/AdvReac Type Severity Reaction Status Date / Time codeine Allergy Intermediate Hives Verified 07/24/23 07:46 Review of Systems Review of Systems: All systems reviewed & are unremarkable except as noted in HPI and below PMFSH Past Medical History Medical History Acute anxiety Depression Mood disorder Tachycardia Surgical History Surgical History No pertinent past surgical history Social History Social History Substance use type: marijuana Gender identity (if verbalized by the patient): Female Exam Narrative: General appearance: Well-developed, well-nourished Skin: Normal color Head: Normocephalic, nontraumatic Eyes: Clear conjunctiva ENT: Oropharynx normal, ears normal, nose normal Neck: Supple, nontender Chest and respiratory: Airway patent, no respiratory distress, no accessory muscle use Heart: Regular rate/rhythm Abdomen: Soft, nontender, no organomegaly, quiet bowel sounds Vascular: Normal peripheral pulses, normal capillary refill. Musculoskeletal: Normal range of motion, nontender back Neurologic: Alert and oriented ?3, [employer] is normal as tested, no gross motor deficit Course Vital Signs Vital signs: Vital Signs Pulse Rate 112 H 07/24/23 07:55 Respiratory Rate 16 07/24/23 07:55 Blood Pressure 111/84 07/24/23 07:55 Pulse Oximetry 95 07/24/23 07:55 Oxygen Delivery Room Air 07/24/23 07:55 Pulse Rate 100 07/24/23 09:43 Respiratory Rate 16 07/24/23 09:43 Blood Pressure 101/68 07/24/23 09:43 Pulse Oximetry 96 07/24/23 09:43 Oxygen Delivery Room Air 07/24/23 07:55 MDM - Nausea/Vomiting/Diarrhea MDM Narrative Medical decision making narrative: Patient came with nausea, vomiting and diarrhea, Differential diagnosis include viral gastroenteritis, dehydration, electrolyte imbalance, blood workup showed potassium of 3.0, urinalysis came back positive for infection In the ED patient received 2 L of normal saline IV, 1 g of Rocephin IV, 40 mEq of potassium p.o., Reglan 10 mg IV, Benadryl 50 mg IV Patient reported black tarry stool this morning, declined rectal examination. Patient feeling significantly better compared to on arrival and would like to go home. Discharge the pt was discharged to home.the pt,s condition upon discharge was fair,education was provided to the pt in [facility]
[2023-07-24 08:36] LABS: Appearance Urine Cloudy (Clear); Bacteria Urine 1+ /hpf; Bilirubin Urine 1+ (Negative); Blood Urine Negative (Negative); Color Urine Dark Yellow (Yellow); Glucose Urine UA Negative (Negative); Ketones Urine Trace mg/dL (Negative); Leukocyte Esterase Ur 1+ LEU/UL (Negative); Nitrate Urine Negative (Negative); Protein Urine 2+ mg/dL (Negative); Specific Grav Ur 1.037 (1.001-1.035); Squamous Epithelial Cell Urine Moderate /hpf (Few)
[2023-07-24 08:37] LABS: Add Urine Microscopic? YES
[2023-07-24 08:39] LABS: Alanine Aminotransferase 18 U/L (6-35); Albumin Level 4.9 g/dL (3.5-5.1); Alkaline Phosphatase 112 U/L (38-126); Anion Gap 7 mmol/L (4-12); Aspartate Amino Transferase 27 U/L (14-36); Bilirubin,Total 2.5 mg/dL (0.2-1.3); Blood Urea Nitrogen 18 mg/dL (7-17); Calcium 9.6 mg/dL (8.4-10.2); Carbon Dioxide 33 mmol/L (22-30); Chloride 94 mmol/L (98-107); Estimated CRCL calculation 91 ml/min; Estimated Glomerular Filt Rate > 60; Glucose 118 mg/dL (65-110); Lipase 64 U/L (23-300); Sodium 134 mmol/L (137-145)
[2023-07-24 08:41] LABS: Basophils Absolute Auto 0.1 K/mm3 (0.0-0.1); Basophils Percent Auto 0.4 % (0.2-1.2); Eosinophils Percent Auto 0.2 % (0-4.4); Hematocrit 46.7 % (37.0-47.0); Hemoglobin 16.3 g/dL (12.0-15.0); Immature Granulocyte Absolute 0.17 K/mm3 (0.00-0.031); Immature Granulocyte Percent A 1.5 % (0-0.5); Lymphocytes Percent Auto 18.3 % (18.3-44.2); Mean Corpuscular HGB Conc 34.9 g/dl (32-36); Mean Corpuscular Hemoglobin 30.8 pg (26-34); Mean Corpuscular Volume 88.3 fl (80-100); Mean Platelet Volume 9.9 fl (7.4-10.4); Monocytes Absolute Auto 0.8 K/mm3 (0.1-0.6); Monocytes Percent Auto 6.6 % (2.6-8.5); Neutrophils Absolute Auto 8.4 K/mm3 (1.3-6.7); Platelet Count Result 496 k/mm3 (150-375); Red Blood Count 5.29 M/mm3 (4.2-5.4); White Blood Count 11.5 K/mm3 (4.5-10.0)
[2023-07-24 09:43] VITALS: BP 101/68; PULSE 100; RESP 16; O2SAT 96
[2023-07-24] MEDS: SODIUM CHLORIDE 0.9% IV 1,000 ML 999 ML IV CONT ×2 (10:57→11:58)
[2023-07-24] MEDS: METOCLOPRAMIDE HCL INJ 10 MG/2 ML VIAL IV PUSH (11:07)
[2023-07-24] MEDS: diphenhydrAMINE HCl INJ 50 MG/ML VIAL IV PUSH (11:07)
[2023-07-24] MEDS: POTASSIUM CHLORIDE 20 MEQ ER TABLET 40 MEQ PO (13:41)
[2023-07-24 13:45] VITALS: BP 103/69; PULSE 81; RESP 16; O2SAT 99
== END 2023-07-24 13:48 | disposition home or self-care (01) ==
PROVIDERS: Emergency Provider Emergency Medicine; PCP Physician Assistant
DX: K52.9 Noninfective gastroenteritis and colitis, unspecified (principal); E87.6 Hypokalemia; N39.0 Urinary tract infection, site not specified; F41.8 Other specified anxiety disorders
CPT/HCPCS: 36415; 80053; 81001; 81025; 83690; 85025; 87086; 87088; 96361; 96365; 96375; 99284; A9270; J0696; J1200; J2765; J7030

== ENCOUNTER 2023-10-01 10:04 | Emergency (ER) | payer OTHER, SELFPAY ==
[2023-10-01 10:06] VITALS: BP 132/89; PULSE 83; RESP 18; TEMP 36.6; O2SAT 97
[2023-10-01] MEDS: SODIUM CHLORIDE 0.9% IV 1,000 ML 999 ML IV CONT (10:52)
--- NOTE | 2023-10-01 10:56 | PC.NURSE ---
Dr. Eastman gave verbal order to stop/hold ondansetron and VO for Reglan IV.
[2023-10-01] MEDS: METOCLOPRAMIDE HCL INJ 10 MG/2 ML VIAL IV PUSH (10:59)
[2023-10-01 11:01] LABS: Basophils Percent Auto 0.1 % (0.2-1.2); Eosinophils Percent Auto 0.1 % (0-4.4); Hematocrit 43.7 % (37.0-47.0); Hemoglobin 15.5 g/dL (12.0-15.0); Immature Granulocyte Absolute 0.04 K/mm3 (0.00-0.031); Immature Granulocyte Percent A 0.3 % (0-0.5); Lymphocytes Absolute Auto 1.05 K/mm3 (0.9-3.2); Lymphocytes Percent Auto 7.7 % (18.3-44.2); Mean Corpuscular HGB Conc 35.5 g/dl (32-36); Mean Corpuscular Hemoglobin 31.4 pg (26-34); Mean Corpuscular Volume 88.6 fl (80-100); Monocytes Absolute Auto 0.7 K/mm3 (0.1-0.6); Neutrophils Absolute Auto 11.9 K/mm3 (1.3-6.7); Neutrophils Percent Auto 86.8 % (45.5-73.1); Platelet Count Result 427 k/mm3 (150-375); Red Blood Count 4.93 M/mm3 (4.2-5.4); Red Cell Distribution Width 11.9 % (11.5-14.5); White Blood Count 13.7 K/mm3 (4.5-10.0)
[2023-10-01 11:14] LABS: Alanine Aminotransferase 16 U/L (6-35); Albumin Level 5.2 g/dL (3.5-5.1); Alkaline Phosphatase 97 U/L (38-126); Anion Gap 13 mmol/L (4-12); Aspartate Amino Transferase 25 U/L (14-36); Bilirubin,Total 2.6 mg/dL (0.2-1.3); Blood Urea Nitrogen 16 mg/dL (7-17); Calcium 9.6 mg/dL (8.4-10.2); Carbon Dioxide 25 mmol/L (22-30); Chloride 96 mmol/L (98-107); Estimated CRCL calculation 105 ml/min; Estimated Glomerular Filt Rate > 60; Glucose 136 mg/dL (65-110); Potassium 2.9 mmol/L (3.4-5.0); Sodium 134 mmol/L (137-145)
[2023-10-01 11:52] LABS: Appearance Urine Turbid (Clear); Bacteria Urine 2+ /hpf; Bilirubin Urine Negative (Negative); Blood Urine 1+ (Negative); Color Urine Dark Yellow (Yellow); Glucose Urine UA Negative (Negative); Ketones Urine 1+ mg/dL (Negative); Leukocyte Esterase Ur Trace LEU/UL (Negative); Nitrate Urine Negative (Negative); Non Pathogenic Casts 0-2; Protein Urine 2+ mg/dL (Negative); Squamous Epithelial Cell Urine Many /hpf (Few); pH Urine 6.5 (5.0-9.0)
[2023-10-01 11:55] LABS: Specific Grav Ur 1.031 (1.001-1.035)
[2023-10-01 11:57] LABS: Add Urine Microscopic? YES
[2023-10-01 12:20] VITALS: BP 114/86; PULSE 73; RESP 16; O2SAT 99
--- NOTE | 2023-10-01 14:21 | ED.NAVMDI ---
HPI - Nausea/Vomiting/Diarrhea General Chief complaint: Nausea/Vomiting/Diarrhea Stated complaint: cyclic vomiting Time Seen by Provider: 10/01/23 10:20 History of Present Illness HPI Narrative: Patient is a 28-year-old female who presents ER with less nausea vomiting. Ongoing last for hours. These happens to her when she is stressed. No improvement with Zofran home. No fevers or chills or sweats. No diarrhea. No urinary symptoms. Typically improves with Reglan. Related Data Home Medications Medication Instructions Recorded Confirmed amitriptyline 50 mg tablet 50 mg PO HS 10/12/22 10/12/22 aripiprazole 20 mg tablet 20 mg PO DAILY 10/12/22 10/12/22 lamotrigine 100 mg tablet,extended 100 mg PO DAILY 10/12/22 10/12/22 release 24 hr levonorgestrel 21 mcg/24 hr (up to 1 device intrauterine ONCE 10/12/22 10/12/22 8 years) 52 mg intrauterine device (Mirena) Allergies Allergy/AdvReac Type Severity Reaction Status Date / Time codeine Allergy Intermediate Hives Verified 10/01/23 10:04 Review of Systems Review of Systems: All systems reviewed & are unremarkable except as noted in HPI and below Constitutional: Constitutional: Reports no additional constitutional complaints ENT: Reports system reviewed and no additional complaints, except as documented Cardiovascular: Cardiovascular: Reports no additional cardiovascular complaints Respiratory: Respiratory: Reports no additional respiratory complaints Gastrointestinal: Gastrointestinal: Denies abdominal pain, Denies diarrhea, Reports nausea and Reports vomiting Genitourinary: Genitourinary: Reports no additional female genitourinary complaints PMFSH Past Medical History Medical History Acute anxiety Depression Mood disorder Tachycardia Surgical History Surgical History No pertinent past surgical history Social History Social History Substance use type: marijuana Gender identity (if verbalized by the patient): Female Exam Narrative: GENERAL: Well-appearing, well-nourished, and in no acute distress. HEAD: Normocephalic, atraumatic. ENT: Mucous membranes moist. CHEST: Clear to auscultation. No respiratory distress. HEART: Regular rate and rhythm. Normal peripheral pulses. ABDOMEN: Soft, nontender, nondistended. EXTREMITIES: Normal range of motion. No edema. SKIN: Warm, dry, no rash. NEURO: Alert and oriented x3. PSYCH: Normal mood and affect. Course Course Emergency Course: Moderate improvement with Reglan. Will give Zofran as well. Potassium replaced orally. Discharge home. Patient does have appearance of possible UTI she reports this happens to her frequently when she is vomiting. Will give her cephalexin at home. Vital Signs Vital signs: Vital Signs Temperature 97.8 F 10/01/23 10:06 Pulse Rate 83 10/01/23 10:06 Respiratory Rate 18 10/01/23 10:06 Blood Pressure 132/89 10/01/23 10:06 Pulse Oximetry 97 10/01/23 10:06 Oxygen Delivery Room Air 10/01/23 10:06 Temperature 97.8 F 10/01/23 10:06 Pulse Rate 73 10/01/23 12:20 Respiratory Rate 16 10/01/23 12:20 Blood Pressure 114/86 10/01/23 12:20 Pulse Oximetry 99 10/01/23 12:20 Oxygen Delivery Room Air 10/01/23 10:06 MDM - Nausea/Vomiting/Diarrhea Lab Data 10/01/23 10:52 10/01/23 10:52 Labs: Lab Results 10/01/23 10/01/23 Range/Units 10:52 11:43 WBC 13.7 H (4.5-10.0) K/mm3 RBC 4.93 (4.2-5.4) M/mm3 Hgb 15.5 H (12.0-15.0) g/dL Hct 43.7 (37.0-47.0) % MCV 88.6 (80-100) fl MCH 31.4 (26-34) pg MCHC 35.5 (32-36) g/dl RDW 11.9 (11.5-14.5) % Plt Count 427 H (150-375) k/mm3 MPV 10.0 (7.4-10.4) fl Immature Gran % (Auto) 0.3 (0-0.5) % Neut % (Auto) 86.8 H (45.5-73.1) % Lymph % (Auto) 7.7
[2023-10-01] MEDS: POTASSIUM CHLORIDE 20 MEQ ER TABLET 40 MEQ PO (14:36)
[2023-10-01] MEDS: ONDANSETRON INJ 4 MG/2 ML VIAL IV PUSH (14:36)
[2023-10-01 14:41] VITALS: BP 118/68; PULSE 70; RESP 16; TEMP 36.6; O2SAT 100
== END 2023-10-01 14:43 | disposition home or self-care (01) ==
PROVIDERS: Emergency Provider Emergency Medicine; PCP Physician Assistant
DX: R11.15 Cyclical vomiting syndrome unrelated to migraine (principal); E87.6 Hypokalemia; F41.9 Anxiety disorder, unspecified; F32.A Depression, unspecified; F39 Unspecified mood [affective] disorder; Z97.5 Presence of (intrauterine) contraceptive device; Z79.899 Other long term (current) drug therapy
CPT/HCPCS: 36415; 80053; 81001; 81025; 85025; 87086; 87088; 96361; 96374; 96375; 99284; A9270; J2405; J2765; J7030

== ENCOUNTER 2024-03-10 09:45 | Outpatient (CLI) | payer OTHER, SELFPAY ==
--- NOTE | ~2024-03-10 | CT_ITS ---
EXAMINATION: CT diagnostic chest w con DATE: 03/10/2024 10:16 INDICATION: NODULE OF LUNG TECHNIQUE: Computed tomography (CT) of the chest was performed without intravenous contrast. Addition al 3D reconstructions utilizing coronal maximum intensity projection (MIP) were performed. Automated exposure control and iterative reconstruction technique were employed. The dose-length product was 14 0.83 mGy-cm. COMPARISON: None FINDINGS: There is an 11 x 6 x 6 mm nodule along a linear band of discoid atelectasis/scarring in the right upp er lobe. Additional small region of linear discoid atelectasis/scarring at the posterior right lower lobe. No other suspicious pulmonary nodules, pneumonia, pulmonary edema or pleural effusion. Heart si ze is normal. No pericardial effusion. Thoracic aorta is normal in caliber with no dissection. No pat hologically enlarged thoracic lymphadenopathy. Visualized upper abdomen and bones are unremarkable. IMPRESSION: 1. 11 x 6 x 6 mm nodule along a band of discoid atelectasis in the right upper lobe. Correlate with a ny prior outside imaging to assess for interval stability which would affect follow-up management. If there is no prior imaging would recommend 6-12 month follow-up low-dose noncontrast chest CT. Reviewed, dictated and finalized at location [facility] IMPRESSION: 1. 11 x 6 x 6 mm nodule along a band of discoid atelectasis in the right upper lobe. Correlate with any prior outside imaging to assess for interval stability which would affect follow-up management. If there is no prior imaging would re commend 6-12 month follow-up low-dose noncontrast chest CT.
== END 2024-03-10 09:46 | disposition home or self-care (01) ==
LOC: ANHIMG 09:59
PROVIDERS: PCP Physician Assistant; Visit Provider Physician Assistant
DX: R91.1 Solitary pulmonary nodule (principal); J98.11 Atelectasis
CPT/HCPCS: 71260; Q9967

== ENCOUNTER 2024-06-20 08:24 | Emergency (ER) | payer OTHER, SELFPAY ==
[2024-06-20 08:32] VITALS: BP 136/86; PULSE 92; RESP 16; TEMP 37.1; O2SAT 100
--- NOTE | 2024-06-20 08:40 | ED.NAVMDI ---
HPI - Nausea/Vomiting/Diarrhea General Chief complaint: Nausea/Vomiting/Diarrhea Stated complaint: Vomiting Time Seen by Provider: 06/20/24 08:40 Source: patient Mode of arrival: ambulatory Limitations: no limitations History of Present Illness HPI Narrative: 28-year-old female presents with history cyclic vomiting. Patient is out Zofran prescription. Has been vomiting the last 2 days. Here for Medication refill and work note. Patient has a GI specialist at [facility]. Reports a recent normal upper endoscopy. Denies abdominal pain. Patient states she is going to a drip bar today for IV fluids. All systems reviewed and negative except as noted above. Related Data Home Medications ?Medication ?Instructions ?Recorded ?Confirmed ?Last Taken ?Type aripiprazole 20 mg tablet 20 mg PO DAILY 10/12/22 10/12/22 Unknown History lamotrigine 100 mg tablet,extended 100 mg PO DAILY 10/12/22 10/12/22 Unknown History release 24 hr levonorgestrel (Mirena) 1 device intrauterine ONCE 10/12/22 10/12/22 Unknown History aripiprazole 10 mg tablet mg 06/20/24 Unknown History hydroxyzine pamoate 25 mg capsule mg 06/20/24 Unknown History mirtazapine 7.5 mg tablet mg 06/20/24 Unknown History triazolam 0.25 mg tablet mg 06/20/24 Unknown History Allergies Allergy/AdvReac Type Severity Reaction Status Date / Time codeine Allergy Intermediate Hives Verified 06/20/24 08:33 Review of Systems Review of Systems: CONSTITUTIONAL: Denies fever, chills, or sweats. EYES: Denies visual changes, redness, or discharge. ENT: Denies rhinorrhea, congestion, sore throat, or otalgia. CARDIOVASCULAR: Denies chest pain, palpitations, or edema. RESPIRATORY: Denies cough or dyspnea. GASTROINTESTINAL: Denies abdominal pain Reports nausea, vomiting. Denies diarrhea. GENITOURINARY: Denies dysuria or hematuria. SKIN: Denies rash or itching. MUSCULOSKELETAL: Denies back pain, joint pain, or myalgia. NEUROLOGIC: Denies headache, numbness, or weakness. PSYCHIATRIC: Denies anxiety or depression. All other systems reviewed are negative, except as documented in HPI. [facility] Past Medical History Medical History Acute anxiety Depression Mood disorder Tachycardia Surgical History Surgical History No pertinent past surgical history Social History Social History Substance use type: marijuana Gender identity (if verbalized by the patient): Female Comments At time of signature, agree with nursing past medical, surgical, social and family history. There is no relevant family history pertinent to the presenting complaint. Exam Narrative: GENERAL: This is a well-nourished, well-developed patient, in no apparent distress. HEAD: normocephalic, atraumatic. EYES: PERRL. Sclera clear/white. Vision is grossly intact. EARS: External ears normal NOSE: External nose normal NECK: Neck supple, non-tender without lymphadenopathy, masses or thyromegaly. CARDIOVASCULAR: Regular rate and rhythm without murmurs, gallops, or rubs. RESPIRATORY: Clear to auscultation. Breath sounds equal bilaterally. No wheezes, rales, or rhonchi. GASTROINTESTINAL: Abdomen soft, non-tender, nondistended. Bowel sounds are active. No hepato-splenomegaly, or palpable masses. No guarding. SKIN: warm, Dry, intact with no suspicious lesions or rash, good texture and turgor. NEURO: awake, alert, and oriented to person, place and time. There were no obvious focal neurologic abnormalities. EXTREMITIES: No joint tenderness, effusion, or edema noted. Course Course Level of Care: Express Care Visit Vital Signs Vital signs: Vital Signs Temperature 37.1 C 06/20/24 08:32 Pulse Rate 92 06/20/24 08:32 Respiratory Rate 16 06/20/24 08:32 Blood Pressure 136/86 06/20/24 08:32 Pulse Oximetry 100 06/20/24 08:32 Oxygen Delivery Room Air 06/20/24 08:32 Temperature 37.1 C 06/20/24 08:32 Pulse Rate 92 06/20/24 08:32 Respiratory Rate 16 06/20/24 08:32 Blood Pressure 136/86 06/20/24 08:32 Pulse Oximetry 100 06/20/24 08:32 Oxygen Delivery Room Air 06/20/24 08:32 Reviewed MDM - Nausea/Vomiting/Diarrhea MDM Narrative Medical decision making narrative: patient is well-appearing, nontoxic. No abdominal tenderness on exam. Has not vomited since yesterday. Hemodynamically stable. Please be advised this is a medical document. It is intended for [id number] communication. It is written in medical language and may contain unfamiliar abbreviations or verbiage. Medical documents are intended to carry relevant information, facts as evident, and the clinical opinion of the practitioner at the time of the encounter. This report may have been done utilizing a voice recognition system. Attempts have been made to correct errors. However, there may be uncorrected grammatical, spelling, and recognition errors present. The file time of this note does not necessarily represent the time of service. Discharge Plan Discharge Clinical Impression: Nausea & vomiting, Cyclic vomiting syndrome Patient Disposition: Home, Self-Care Condition: Stable Instructions: Acute Nausea and Vomiting (ED) Additional Instructions: Take Zofran prescribed. Drink at least 64 oz of water a day. If you continue to vomit, concerned for dehydration or if you have abdominal pain go to the ER. Patient Language: Cypriot Prescriptions: New ondansetron 4 mg tablet,disintegrating 4 mg PO Q8H PRN (Reason: nausea and vomiting) Qty: 20 0RF No Action Mirena 21 mcg/24 hours (8 yrs) 52 mg Intrauterine Device 1 device INTRAUTERINE ONCE Rx Instructions: as a single dose aripiprazole 20 mg Tablet 20 mg PO DAILY lamotrigine 100 mg Tablet Extended Release 24hr 100 mg PO DAILY triazolam 0.25 mg tablet hydroxyzine pamoate 25 mg capsule mirtazapine 7.5 mg tablet aripiprazole 10 mg tablet Follow-up/Referrals: Agnes,ROMAN Virgen [Primary Care Provider] - Stand Alone Forms: Work/School Release IP Time of Disposition: 08:50
== END 2024-06-20 08:55 | disposition home or self-care (01) ==
PROVIDERS: Emergency Provider Nurse Practitioner Family; PCP Physician Assistant
DX: R11.2 Nausea with vomiting, unspecified (principal); R11.15 Cyclical vomiting syndrome unrelated to migraine; F12.90 Cannabis use, unspecified, uncomplicated
CPT/HCPCS: 99213; G0463

== ENCOUNTER 2024-07-23 08:34 | Emergency (ER) | payer OTHER, SELFPAY ==
[2024-07-23 08:41] VITALS: BP 115/68; PULSE 76; RESP 19; TEMP 37; O2SAT 100
--- NOTE | 2024-07-23 09:21 | ED.NAVMDI ---
HPI - Nausea/Vomiting/Diarrhea General Chief complaint: Nausea/Vomiting/Diarrhea Stated complaint: Vomiting,Unable To Sleep Source: patient and RN notes reviewed Mode of arrival: ambulatory Limitations: no limitations History of Present Illness HPI Narrative: 29-year-old female presents to the [facility] complaining of nausea and vomiting. She said she has been vomiting for 3 days. She has a history of cyclic vomiting. Her last episode of vomiting was about 6:00 a.m. this morning. She has tried to keep fluids down in between episodes but then she has to vomit right afterwards. She does complain of some abdominal cramping that becomes worse before she vomits. She currently takes Zofran for her vomiting and she says it helps some. She also reports says she has not slept well in 3 days. She has a history of sleep problems has tried medications prescribed by her PCP. Related Data Home Medications ?Medication ?Instructions ?Recorded ?Confirmed ?Last Taken ?Type aripiprazole 20 mg tablet 20 mg PO DAILY 10/12/22 10/12/22 Unknown History levonorgestrel (Mirena) 1 device intrauterine ONCE 10/12/22 10/12/22 Unknown History aripiprazole 10 mg tablet 5 mg PO DAILY 06/20/24 Unknown History hydroxyzine pamoate 25 mg capsule mg 06/20/24 Unknown History lamotrigine 150 mg tablet 300 mg 07/23/24 Unknown History Allergies Allergy/AdvReac Type Severity Reaction Status Date / Time codeine Allergy Intermediate Hives Verified 07/23/24 08:39 Review of Systems Review of Systems: CONSTITUTIONAL: Denies fever, chills, or sweats. EYES: Denies visual changes, redness, or discharge. ENT: Denies rhinorrhea, congestion, sore throat, or otalgia. CARDIOVASCULAR: Denies chest pain, palpitations, or edema. RESPIRATORY: Denies cough or dyspnea. GASTROINTESTINAL: Positive for abdominal cramping, nausea, vomiting. Denies diarrhea or blood in stools or vomit. GENITOURINARY: Denies dysuria or hematuria. SKIN: Denies rash or itching. MUSCULOSKELETAL: Denies back pain, joint pain, or myalgia. NEUROLOGIC: Denies headache, numbness, or weakness. PSYCHIATRIC: Denies anxiety or depression. Reports sleep disturbance. All other systems reviewed are negative, except as documented in HPI. [facility] Past Medical History Medical History Acute anxiety Depression Mood disorder Tachycardia Surgical History Surgical History No pertinent past surgical history Social History Social History Substance use type: marijuana Gender identity (if verbalized by the patient): Female Comments At the time of my signature, I reviewed and agree with the nursing past medical, surgical, social, and family history. There is no relevant family history pertinent to the patient complaint. Exam Narrative: GENERAL: This is a well-nourished, well-developed adult, in no apparent distress. They are non ill-appearing, nontoxic appearing. Patient appears tired. HEAD: normocephalic, atraumatic. EYES: Sclera clear/white. Vision is grossly intact. EARS: External ears normal, hearing grossly intact NOSE: External nose normal MOUTH: Mucous membranes are moist and intact NECK: Neck supple CARDIOVASCULAR: Regular rate and rhythm without murmurs, gallops, or rubs. RESPIRATORY: Clear to auscultation. Breath sounds equal bilaterally. No wheezes, rales, or rhonchi. GASTROINTESTINAL: Abdomen soft, mild tenderness to palpation to the epigastric region, nondistended. Bowel sounds are active. No hepato-splenomegaly, or palpable masses. No guarding. SKIN: warm, Dry, intact with no suspicious lesions or rash, good texture and turgor. NEURO: awake, alert, and oriented to person, place and time. There were no obvious focal neurologic abnormalities. EXTREMITIES: No joint tenderness, effusion, or edema noted. Course Course Level of Care: Express Care Visit Vital Signs Vital signs: Vital Signs Temperature 98.6 F 07/23/24 08:41 Pulse Rate 76 07/23/24 08:41 Respiratory Rate 19 07/23/24 08:41 Blood Pressure 115/68 07/23/24 08:41 Pulse Oximetry 100 07/23/24 08:41 Oxygen Delivery Room Air 07/23/24 08:41 Temperature 98.6 F 07/23/24 08:41 Pulse Rate 76 07/23/24 08:41 Respiratory Rate 19 07/23/24 08:41 Blood Pressure 115/68 07/23/24 08:41 Pulse Oximetry 100 04/02/25 08:41 Oxygen Delivery Room Air 07/23/24 08:41 Reviewed MDM - Nausea/Vomiting/Diarrhea MDM Narrative Medical decision making narrative: Patient states her vomiting is under control currently and will continue to use her Zofran as directed. She was recommended a follow-up with her PCP or a GI specialist for further evaluation of her cyclic vomiting. She says she is able to keep fluids down in between episodes and says she is able to maintain her hydration. She was advised [facility] is is very limited in how they can treat for sleep problems she cannot be given controlled substances for management of her sleep at the [facility]. She currently takes clonidine as needed for her sleep and has tried trazodone in the past and says it does not work. She was advised to follow up with her PCP or a specialist for further evaluation of her sleep. She was offered hydroxyzine or Benadryl to use as needed for insomnia but she says that it does not work and so she has declined treatment. Anticipatory guidance was given and ED precautions were discussed. Differential Diagnosis Differential diagnosis: Likely dehydration and other (Cyclic vomiting, insomnia, gastroenteritis) Critical Care Time Critical Care Time Critical Care Time: No Discharge Plan Discharge Clinical Impression: Sleep disturbance Vomiting Qualifiers: Vomiting type: unspecified Nausea presence: with nausea Qualified Code(s): R11.2 - Nausea with vomiting, unspecified Patient Disposition: Home, Self-Care Condition: Stable Instructions: Acute Nausea and Vomiting (DC) Additional Instructions: Stay hydrated. Take small sips of fluid containing electrolytes frequently. Clear liquids (broth, jello, tea, sprite, pedialyte) [employer] foods (bananas, rice, applesauce, toast, crackers) Avoid fatty, greasy, fried or spicy foods. Limit dairy until symptoms are improved. Take her medications as prescribed for your sleep. You should go to the hospital if you experience persistent nausea and vomiting that does not resolve and does not allow you to tolerate any food or fluids, fevers, increasing abdominal pain, persistent diarrhea, dizziness, fainting, or for any other concerns. Follow up with primary care provider in 3 days. Patient Language: Scottish Prescriptions: No Action Mirena 21 mcg/24 hours (8 yrs) 52 mg Intrauterine Device 1 device INTRAUTERINE ONCE Rx Instructions: as a single dose aripiprazole 20 mg Tablet 20 mg PO DAILY Rx Instructions: total dose 25mg hydroxyzine pamoate 25 mg capsule aripiprazole 10 mg tablet 5 mg PO DAILY Rx Instructions: total dose 25mg lamotrigine 150 mg tablet 300 mg Follow-up/Referrals: Agnes,ROMAN Virgen [Primary Care Provider] - Stand Alone Forms: Work/School Release IP Time of Disposition: 09:24
== END 2024-07-23 09:30 | disposition home or self-care (01) ==
PROVIDERS: PCP Physician Assistant
DX: G47.9 Sleep disorder, unspecified (principal); R11.2 Nausea with vomiting, unspecified; F12.90 Cannabis use, unspecified, uncomplicated
CPT/HCPCS: 99211; G0463

== ENCOUNTER 2024-09-26 08:11 | Emergency (ER) | payer OTHER, SELFPAY ==
--- NOTE | 2024-09-26 08:18 | ED.UPPEXIN ---
HPI - Extremity Injury (Upper) General Chief Complaint: Wound/Laceration Stated Complaint: Left Hand Finger Pain Time Seen by Provider: 09/26/24 08:19 Source: patient, RN notes reviewed and old records reviewed Mode of arrival: ambulatory Limitations: no limitations History of Present Illness HPI narrative: 29-year-old female presents to the [facility] with redness, discomfort around the nail bed of the 3rd finger left hand. States it has been going on for 4-5 days. Started as a hangnail. Onset (ago): day(s) (4-5) Related Data Home Medications ?Medication ?Instructions ?Recorded ?Confirmed ?Last Taken ?Type aripiprazole 20 mg tablet 20 mg PO DAILY 10/12/22 10/12/22 Unknown History levonorgestrel (Mirena) 1 device intrauterine ONCE 10/12/22 10/12/22 Unknown History aripiprazole 10 mg tablet 5 mg PO DAILY 06/20/24 Unknown History hydroxyzine pamoate 25 mg capsule mg 06/20/24 Unknown History lamotrigine 150 mg tablet 300 mg 07/23/24 Unknown History Allergies Allergy/AdvReac Type Severity Reaction Status Date / Time codeine Allergy Intermediate Hives Verified 09/26/24 08:23 Review of Systems Review of Systems: All systems reviewed & are unremarkable except as noted in HPI and below Constitutional: Constitutional: Reports no additional constitutional complaints ENT: Reports system reviewed and no additional complaints, except as documented Musculoskeletal: Musculoskeletal: Reports no additional musculoskeletal complaints Integumentary/Breasts: Skin/Breast: Reports as per HPI PMFSH Past Medical History Medical History Mood disorder Depression Tachycardia Acute anxiety Surgical History Surgical History No pertinent past surgical history Social History Social History Substance use type: marijuana Gender identity (if verbalized by the patient): Female Comments At the time of my signature, I reviewed and agree with the nursing past medical, surgical, social, and family history. There is no relevant family history pertinent to the patient complaint. Exam Const: General: cooperative, healthy appearing, comfortable, no acute distress, well developed, alert and well nourished Nutritional Appearance: well nourished Orientation/consciousness: patient oriented x3 Limitations: no limitations HENMT: Head: normal to inspection Eyes: General: appearance normal, both eyes and all related structures Alignment and Position: alignment normal Neck: Neck: normal visual inspection, full ROM, no lymphadenopathy and no meningeal signs Chest: Chest palpation & inspection: normal inspection of the chest Resp: Effort & Inspection: normal respiratory effort and able to speak in complete sentences Cardio: Rate: regular rate Skin: General skin exam: normal color and no rashes or lesions noted Other: Redness noted on the lateral aspect, no fluctuant area. Neuro: General: patient oriented x3, gait normal, moves all extremities and no meningeal signs Cognition (Neuro): normal cognition Speech: normal speech Gait exam (Neuro): Normal gait present Extrem: General: normal to inspection, full ROM, capillary refill normal and normal gait Psych: Appearance: grossly normal and well kempt Mental Status: mental status grossly normal Speech and movement: Normal speech and movement present and Clear speech present Affect: normal affect Attitude: cooperative Course Course Level of Care: Express Care Visit Vital Signs Vital signs: Vital Signs Temperature 99.1 F 09/26/24 08:19 Pulse Rate 84 09/26/24 08:19 Respiratory Rate 20 09/26/24 08:19 Blood Pressure 126/68 09/26/24 08:19 Pulse Oximetry 100 09/26/24 08:19 Oxygen Delivery Room Air 09/26/24 08:19 Temperature 99.1 F 09/26/24 08:19 Pulse Rate 84 09/26/24 08:19 Respiratory Rate 20 09/26/24 08:19 Blood Pressure 126/68 09/26/24 08:19 Pulse Oximetry 100 09/26/24 08:19 Oxygen Delivery Room Air 09/26/24 08:19 Reviewed MDM - Extremity Injury (Upper) MDM Narrative Medical decision making narrative: Patient sitting exam room. Patient presents with redness inflammation to around the fingernail of 3rd finger left hand. Areas soak for 15 minutes in warm soapy water. Pull did skin away with an 18 gauge needle. No fluctuant area, unable to collect culture. Patient prescribed antibiotics, [id number] treatments discussed. Patient appropriate for outpatient treatment with close follow-up Discharge instructions reviewed with patient, as well as provided in writing per nursing staff. The instructions also include specific and strict return/GO TO THE ER as well as f/u information. All questions have been answered, and the patient deny any further questions with discharge and discharge plan. Some parts of this dictation were generated by voice recognition software and may contain typographical and/or grammatical inaccuracies. Differential Diagnosis Differential diagnosis: Likely other (Cellulitis, paronychia, abscess) Critical Care Time Critical Care Time Critical Care Time: No Discharge Plan Discharge Clinical Impression: Paronychia Patient Disposition: Home Condition: Stable Instructions: Antibiotic Form, Paronychia (ED) Additional Instructions: Soak 3 times a day for 15-20 minutes in warm soapy water in Epson salt Take antibiotic as prescribed Follow-up with primary care provider Patient Language: Frisian Prescriptions: New sulfamethoxazole-trimethoprim [Bactrim DS] 800-160 mg tablet 1 tablet PO Q12H Qty: 14 0RF No Action Mirena 21 mcg/24 hours (8 yrs) 52 mg Intrauterine Device 1 device INTRAUTERINE ONCE Rx Instructions: as a single dose aripiprazole 20 mg Tablet 20 mg PO DAILY Rx Instructions: total dose 25mg hydroxyzine pamoate 25 mg capsule aripiprazole 10 mg tablet 5 mg PO DAILY Rx Instructions: total dose 25mg lamotrigine 150 mg tablet 300 mg Follow-up/Referrals: Agnes,ROMAN Virgen [Primary Care Provider] - 2 Weeks (express care follow up) Stand Alone Forms: Work/School Release IP Time of Disposition: 08:52
[2024-09-26 08:19] VITALS: BP 126/68; PULSE 84; RESP 20; TEMP 37.3; O2SAT 100
== END 2024-09-26 09:00 | disposition home or self-care (01) ==
PROVIDERS: Emergency Provider Nurse Practitioner; PCP Physician Assistant
DX: L03.012 Cellulitis of left finger (principal); F12.90 Cannabis use, unspecified, uncomplicated
CPT/HCPCS: 99213; G0463